=== PATIENT | female | born 1950 ===

== ENCOUNTER 2018-01-10 14:07 | Outpatient (CLI) | payer MEDICARE, BC | END 2018-01-10 14:08 | disposition home or self-care (01) | LOC: BICMAMMO 14:07 | PROVIDERS: ATTEND Obstetrics & Gynecology | DX: Z12.31 Encounter for screening mammogram for malignant neoplasm of breast (principal); Z80.3 Family history of malignant neoplasm of breast | CPT/HCPCS: 77063; 77067 ==

== ENCOUNTER 2019-02-11 13:33 | Outpatient (CLI) | payer MEDICARE, BC ==
--- NOTE | 2019-02-11 15:52 | BD ---
Exam: DEXA Bone Density Comparison: None History: 69-year-old post-menopausal female for screening. Lumbar Spine: BMD (g/cm2) L1 0.780 T-Score: -1.9 L2 0.732 T-Score: -2.7 L3 0.831 T-Score: -2.3 L4 0.829 T-Score: -2.1 L1-L4 0.796 T-Score: -2.3 Femoral Neck: 0.531 T-Score: -2.9 Total Femur: 0.741 T-Score: -1.6 Impression: 1. Osteoporosis. POS: TPC
== END 2019-02-11 13:34 | disposition home or self-care (01) ==
LOC: BICMAMMO 13:33
PROVIDERS: ATTEND Obstetrics & Gynecology
DX: Z13.820 Encounter for screening for osteoporosis (principal); M81.0 Age-related osteoporosis without current pathological fracture
CPT/HCPCS: 77080

== ENCOUNTER 2019-04-30 12:48 | Outpatient (CLI) | payer MEDICARE, BC ==
--- NOTE | 2019-04-30 13:21 | RAD ---
EXAM: Two views chest PROVIDED CLINICAL HISTORY: Dyspnea COMPARISON: None FINDINGS: Cardiac silhouette and pulmonary vasculature are within normal limits. The lungs are clear. The osse ous structures have a normal appearance. Bilateral breast prostheses are noted partially calcified on the left. IMPRESSION: No acute cardiopulmonary process.
== END 2019-04-30 12:49 | disposition home or self-care (01) ==
LOC: RAD 12:48
PROVIDERS: ATTEND Internal Medicine Pulmonary Disease
DX: R06.00 Dyspnea, unspecified (principal)
CPT/HCPCS: 71046

== ENCOUNTER 2021-01-14 06:47 | Outpatient (CLI) | payer MEDICARE, BC | END 2021-01-14 06:48 | disposition home or self-care (01) | LOC: ULT 06:47 | PROVIDERS: ATTEND Physician Assistant Medical | DX: R10.13 Epigastric pain (principal); D64.9 Anemia, unspecified; R19.00 Intra-abdominal and pelvic swelling, mass and lump, unspecified site | CPT/HCPCS: 76775 ==

== ENCOUNTER 2022-02-02 09:08 | Outpatient (CLI) | payer MEDICARE, BC | END 2022-02-02 09:09 | disposition home or self-care (01) | LOC: RAD 09:08 | PROVIDERS: ATTEND Internal Medicine Critical Care Medicine | DX: R06.00 Dyspnea, unspecified (principal) | CPT/HCPCS: 71046 ==